=== PATIENT | female | born 1985 | race African-American/Black ===

== ENCOUNTER 2017-01-02 14:12 | Emergency (ER) | payer OTHER ==
--- NOTE | ~2017-01-02 | CR169 ---
[facility] A Service of [facility] & [facility] RADIOLOGY TEXT RESULTS PATIENT: FOUZIA RUIZ LOCATION: CFTX : 89 UNIT #: [id number] AGE: [address]: Trish Bergman APRN SEX: F ORDER DR: [id number] [facility] [address]. [place], [place] [address] [id number] E MR#: [id number] Acc #: [id number] NAME: FOUZIA RUIZ : 1985 SEX: F STUDY DATE/TIME: 01/02/2017 15:24 UNIT: [facility] ROOM: STUDY DESCRIPTION: CR Knee 2 Views Lt Attending Physician: Trish Bergman A.P.R.N. Ordering Physician: Ed Rafa Quinn M.D. Primary Care Physician: [facility] MEDICAL IMAGING REPORT This report is preliminary unless electronic signature is present EXAM Left knee pain status post fall TECHNIQUE/COMPARISON 3 views of the left knee without comparison. FINDINGS There is no acute fracture or dislocation. No knee effusion. No foreign body. IMPRESSION Negative left knee. Dictated by... Pedrito Gibbons M.D. THIS IS AN ELECTRONICALLY VERIFIED REPORT Pedrito Gibbons M.D. at 01/03/2017 3:24 PM C/osmani TD: 01/02/2017 17:15 JOB #: [id number] MEDICAL IMAGING REPORT Page 1 of 1 COPY
--- NOTE | ~2017-01-02 | CR150 ---
[facility] A Service of [facility] & [facility] RADIOLOGY TEXT RESULTS PATIENT: FOUIZA RUIZ LOCATION: CFTX : 89 UNIT #: [id number] AGE: [address]: Trish Bergman APRN SEX: F ORDER DR: [id number] [facility] [address]. [place], [place] [address] [id number] E MR#: [id number] Acc #: [id number] NAME: FOUZIA RUIZ : 1985 SEX: F STUDY DATE/TIME: 01/02/2017 15:29 UNIT: [facility] ROOM: STUDY DESCRIPTION: CR Hip Min 2 Views Lt Attending Physician: Trish Bergman A.P.R.N. Referring Physician: Naresh Puri M.D. Ordering Physician: Ed Rafa Quinn M.D. Primary Care Physician: [facility] MEDICAL IMAGING REPORT This report is preliminary unless electronic signature is present EXAM Left hip, 01/02/17, [facility]. HISTORY 31-year-old female patient, status post fall today. Pain, bruising posterior left hip, ankle pain, knee pain. FINDINGS AP pelvis with frog-leg lateral view of the left hip demonstrates a normal appearance. There is no evidence for dislocation or fracture. Cortex is intact and mineralization preserved. IMPRESSION Negative left hip. Negative AP pelvis. Dictated by... Luis Queen M.D. THIS IS AN ELECTRONICALLY VERIFIED REPORT Luis Queen M.D. at 01/03/2017 8:06 AM FUNMILAYO/neha TD: 01/02/2017 17:06 JOB #: [id number] MEDICAL IMAGING REPORT Page 1 of 1 COPY
--- NOTE | ~2017-01-02 | CR20 ---
[facility] A Service of [facility] & [facility] RADIOLOGY TEXT RESULTS PATIENT: FOUZIA RUIZ LOCATION: CFTX : 89 UNIT #: [id number] AGE: [address]: Trish Bergman APRN SEX: F ORDER DR: [id number] [facility] [address] [place], [place] [address] [id number] E MR#: [id number] Acc #: [id number] NAME: FOUZIA RUIZ : 1985 SEX: F STUDY DATE/TIME: 01/02/2017 15:22 UNIT: [facility] ROOM: STUDY DESCRIPTION: CR Ankle Min 3 Views Lt Attending Physician: Trish Bergman A.P.R.N. Referring Physician: Naresh Puri M.D. Ordering Physician: Ed Rafa Quinn M.D. Primary Care Physician: [facility] MEDICAL IMAGING REPORT This report is preliminary unless electronic signature is present EXAM Left ankle. INDICATIONS Fall and twisted the left ankle. Left ankle pain. FINDINGS Three views of the left ankle compared to 02/28/2016. There is no acute fracture or dislocation. No foreign body. IMPRESSION Negative left ankle. Dictated by... Pedrito Gibbons M.D. THIS IS AN ELECTRONICALLY VERIFIED REPORT Pedrito Gibbons M.D. at 01/03/2017 3:24 PM TIA/neha TD: 01/02/2017 17:02 JOB #: [id number] MEDICAL IMAGING REPORT Page 1 of 1 COPY
== END 2017-01-02 16:00 | disposition home or self-care (01) ==
LOC: CED 14:12 → CFTX 14:12
DX: S83.92XA Sprain of unspecified site of left knee, initial encounter (principal); S93.402A Sprain of unspecified ligament of left ankle, initial encounter; S70.02XA Contusion of left hip, initial encounter; W19.XXXA Unspecified fall, initial encounter; X50.1XXA Overexertion from prolonged static or awkward postures, initial encounter; Y92.009 Unspecified place in unspecified non-institutional (private) residence as the place of occurrence of the external cause
CPT/HCPCS: 29505; 73502; 73560; 73610; 99283